=== PATIENT | female | born 1970 ===

== ENCOUNTER → 2023-11-23 13:22 | Outpatient (REF) | payer OTHER, SELFPAY ==
[2023-11-23 15:42] LABS: Hepatitis B Surface Antibody Negative
[2023-11-23 20:21] LABS: Rubella Positive
== END ==
LOC: REG 13:22
PROVIDERS: ATTENDING PHYSICIAN Nurse Practitioner Family
DX: Z23 Encounter for immunization (principal)
CPT/HCPCS: 36415; 86706; 86735; 86762; 86765; 86787